=== PATIENT | male | born 1990 | race Caucasian/White ===

== ENCOUNTER 2017-01-14 15:12 | Emergency (ER) | payer SELFPAY ==
[~2017-01-14] VITALS: Ht 175.3 cm; Wt 69.0 kg
[2017-01-14 15:22] VITALS: BP 146/85; PULSE 68; RESP 14; TEMP 98; O2SAT 100
[2017-01-14] MEDS ORDERED: LIDOCAINE HCL 1% 50 ML VIAL XX ONE (16:15)
[2017-01-14] MEDS ORDERED: AZITHROMYCIN PWD FOR SUSP 1 GM PACKET PO ONE (16:15)
[2017-01-14] MEDS ORDERED: IBUPROFEN 600 MG TAB PO ONE (16:15)
[2017-01-14] MEDS ORDERED: cefTRIAXone 250 MG VIAL IM ONE (16:15)
[2017-01-14 16:33] LABS: BLOOD, URINE NEG (NEG); GLUCOSE,URINE NEG (NEG); KETONE, URINE NEG (NEG); NITRITE,URINE NEG (NEG)
[2017-01-14 16:36] LABS: URINE COLOR YELLOW (YELLW/STRAW)
[2017-01-14 16:38] LABS: COMMENT (UR) CULTURE INDICATED; CULTURE IF INDICATED CULTURE INDICATED; SQUAMOUS EPITHELIAL CELL URINE 0-5 /hpf (0-5)
--- NOTE | 2017-01-14 16:40 | PD ---
HPI Chief Complaint: Penile discharge Time Seen by Provider: 16:01 Travel History International Travel<30 days: No Contact w/Intl Traveler<30days: No Traveled to known affect area: No History of Present Illness HPI 26yo M with no PMH presents to the ED with multiple complaints today. His main complaint is yellow penile discharge starting this morning. +Dysuria. Pt also had some throat pain yesterday. Also with midsternal chest pain since 2015. States it is there every day and is sharp and worst with movement. States he had a chest infection in 2015. Denies any fever, sob, n/v, abdominal pain, focal weakness or numbness, hematuria, penile rash or testicular pain. PFSH Past Medical History Medical History: Denies Significant Hx Tetanus Vaccination: > 5 Years Influenza Vaccination: No Past Surgical History Surgical History: No Previous Surgery Social History Alcohol Use: Yes (RARE) Tobacco Use: Yes (1/2 PPD) Substance Use: No Allergies-Medications (Allergen,Severity, Reaction): Coded Allergies: No Known Allergies (Unverified , 01/14/17) Reported Meds & Prescriptions Reported Meds & Active Scripts Active No Active Prescriptions or Reported Medications Review of Systems Except as stated in HPI: all other systems reviewed are Neg Physical Exam Narrative GENERAL: 26yo M not in distress. SKIN: Focused skin assessment warm/dry. HEAD: Atraumatic. Normocephalic. EYES: Pupils equal and round. No scleral icterus. No injection or drainage. ENT: Throat: Clear. No exudate. Uvula midline. NECK: Trachea midline. No JVD. CARDIOVASCULAR: Regular rate and rhythm. No murmur appreciated. CHEST WALL: No rash. +TTP midsternum. RESPIRATORY: No accessory muscle use. Clear to auscultation. Breath sounds equal bilaterally. GASTROINTESTINAL: Abdomen soft, non-tender, nondistended. No rebound tenderness or guarding. : MUSCULOSKELETAL: No obvious deformities. No clubbing. No cyanosis. No edema. NEUROLOGICAL: Awake and alert. No obvious cranial nerve deficits. Motor grossly within normal limits. Normal speech. PSYCHIATRIC: Appropriate mood and affect; insight and judgment normal. Data Data Last Documented VS Vital Signs Date Time Temp Pulse Resp B/P Pulse Ox O2 Delivery O2 Flow Rate FiO2 01/14/17 15:43 01/14/17 15:22 98.0 68 14 100 Room Air Orders Urinalysis - C+S If Indicated (01/14/17 16:07) Gc And Chlamydia Pcr (01/14/17 16:07) Azithromycin Powd Pack (Zithromax Powd P (01/14/17 16:15) Ceftriaxone Inj (Rocephin Inj) (01/14/17 16:15) Lidocaine 1% Inj (50 Ml) (Xylocaine 1% I (01/14/17 16:15) Chest, Single Ap (01/14/17 ) Electrocardiogram (01/14/17 ) Ibuprofen (Motrin) (01/14/17 16:15) Urine Culture (01/14/17 16:20) Complete Blood Count With Diff (01/14/17 16:41) Basic Metabolic Panel (Bmp) (01/14/17 16:41) Troponin I (01/14/17 16:41) Labs Laboratory Tests Test 01/14/17 01/14/17 16:20 17:10 Urine Color YELLOW Urine Turbidity HAZY Urine pH 6.0 Urine Specific Sharon 1.025 Urine Protein NEG mg/dL Urine Glucose (UA) NEG mg/dL Urine Ketones NEG mg/dL Urine Occult Blood NEG Urine Nitrite NEG Urine Bilirubin NEG Urine Leukocyte Esterase SMALL Urine RBC 4-9 /hpf Urine WBC 25-49 /hpf Urine WBC Clumps FEW Urine Squamous Epithelial 0-5 /hpf Cells Microscopic Urinalysis Comment CULTURE INDICATED White Blood Count 10.8 TH/MM3 Red Blood Count 4.99 MIL/MM3 Hemoglobin 14.6 GM/DL Hematocrit 43.8 % Mean Corpuscular Volume 87.8 FL Mean Corpuscular Hemoglobin 29.3 PG Mean Corpuscular Hemoglobin 33.3 % Concent Red Cell Distribution Width 11.3 % Platelet Count 201 TH/MM3 Mean Platelet Volume 9.0 FL Neutrophils (%) (Auto) 73.4 % Lymphocytes (%) (Auto) 15.6 % Monocytes (%) (Auto) 6.5 % Eosinophils (%) (Auto) 0.9 % Basophils (%) (Auto) 3.6 % Neutrophils # (Auto) 7.9 TH/MM3 Lymphocytes # (Auto) 1.7 TH/MM3 Monocytes # (Auto) 0.7 TH/MM3 Eosinophils # (Auto) 0.1 TH/MM3 Basophils # (Auto) 0.4 TH/MM3 CBC Comment DIFF FINAL Differential Comment Sodium Level 142 MEQ/L Potassium Level 4.1 MEQ/L Chloride Level 107 MEQ/L Carbon Dioxide Level 29.8 MEQ/L Anion Gap 5 MEQ/L Blood Urea Nitrogen 14 MG/DL Creatinine 1.10 MG/DL Estimat Glomerular Filtration 80 ML/MIN Rate Random Glucose 104 MG/DL Calcium Level 8.9 MG/DL Troponin I LESS THAN 0.02 NG/ML MDM Medical Decision Making Medical Screen Exam Complete: Yes Emergency Medical Condition: Yes Interpretation(s) EKG: NSR 78bpm. Normal axis. 0.5mm ST elevation II, aVF, V2. ? U wave V2, V3 , V4. Laboratory Tests Test 01/14/17 01/14/17 16:20 17:10 Urine Color YELLOW (YELLW/STRAW) Urine Turbidity HAZY (CLEAR) Urine pH 6.0 (5.0-8.5) Urine Specific Sharon 1.025 (1.002-1.035) Urine Protein NEG mg/dL (NEG-TRACE) Urine Glucose (UA) NEG mg/dL (NEG) Urine Ketones NEG mg/dL (NEG) Urine Occult Blood NEG (NEG) Urine Nitrite NEG (NEG) Urine Bilirubin NEG (NEG) Urine Leukocyte Esterase SMALL (NEG) Urine RBC 4-9 /hpf (0-3) Urine WBC 25-49 /hpf (0-5) Urine WBC Clumps FEW (NONE) Urine Squamous Epithelial 0-5 /hpf (0-5) Cells Microscopic Urinalysis Comment CULTURE INDICATED White Blood Count 10.8 TH/MM3 (4.0-11.0) Red Blood Count 4.99 MIL/MM3 (4.50-5.90) Hemoglobin 14.6 GM/DL (13.0-17.0) Hematocrit 43.8 % (39.0-51.0) Mean Corpuscular Volume 87.8 FL (80.0-100.0) Mean Corpuscular Hemoglobin 29.3 PG (27.0-34.0) Mean Corpuscular Hemoglobin 33.3 % Concent (32.0-36.0) Red Cell Distribution Width 11.3 % (11.6-17.2) Platelet Count 201 TH/MM3 (150-450) Mean Platelet Volume 9.0 FL (7.0-11.0) Neutrophils (%) (Auto) 73.4 % (16.0-70.0) Lymphocytes (%) (Auto) 15.6 % (9.0-44.0) Monocytes (%) (Auto) 6.5 % (0.0-8.0) Eosinophils (%) (Auto) 0.9 % (0.0-4.0) Basophils (%) (Auto) 3.6 % (0.0-2.0) Neutrophils # (Auto) 7.9 TH/MM3 (1.8-7.7) Lymphocytes # (Auto) 1.7 TH/MM3 (1.0-4.8) Monocytes # (Auto) 0.7 TH/MM3 (0-0.9) Eosinophils # (Auto) 0.1 TH/MM3 (0-0.4) Basophils # (Auto) 0.4 TH/MM3 (0-0.2) CBC Comment DIFF FINAL Differential Comment Sodium Level 142 MEQ/L (136-145) Potassium Level 4.1 MEQ/L (3.5-5.1) Chloride Level 107 MEQ/L (98-107) Carbon Dioxide Level 29.8 MEQ/L (21.0-32.0) Anion Gap 5 MEQ/L (5-15) Blood Urea Nitrogen 14 MG/DL (7-18) Creatinine 1.10 MG/DL (0.60-1.30) Estimat Glomerular Filtration 80 ML/MIN (>89) Rate Random Glucose 104 MG/DL (74-106) Calcium Level 8.9 MG/DL (8.5-10.1) Troponin I LESS THAN 0.02 NG/ML (0.02-0.05) Last Impressions Chest X-Ray 01/14/17 0000 Signed Impressions: Service Date/Time: January 16:31 - CONCLUSION: 1. No acute cardiopulmonary disease. Rickey Espinoza MD Differential Diagnosis Gonorrhea vs. chlamydia vs. costochondritis vs. pericarditis vs. pneumonia vs. anxiety Narrative Course 26yo M here with main complaint of penile discharge. Although I dont see anything on physical exam, will empirically treat with ceftriaxone IM and azithromycin PO. UA showed leukocyte with WBC and I think that this is secondary to the penile discharge. Labs reviewed, no leukocytosis. Troponin negative. CXR negative. Chest pain is very atypical and do not think it is cardiac. Denies any current chest pain and wants to go home. Pt is well appearing. Instructed pt to follow up with [facility]. Diagnosis Primary Impression: STD (male) Patient Instructions: General Instructions Departure Forms: Tests/Procedures Additional Instructions: Please have your sexual partner treated as well. Will will call you for the result of gonorrhea and chlamydia but you have been treated for both in the emergency department today. Please follow up with [facility] regarding your chest pain. Return to the ED if symptoms worsen. Med/Other Pt SpecificInfo: Prescription(s) given Scripts Ibuprofen 600 Mg [id number] Mg PO Q8H PRN (PAIN) #20 TAB Ref 0 Prov:Loni Callejas DO 01/14/17 Disposition: 01 DISCHARGE HOME Condition: Stable (ERASED) Loni Callejas DO Jan 14, 2017 16:40
--- NOTE | 2017-01-14 16:47 | RADRPT ---
EXAM DATE/TIME: 01/14/2017 16:31 [facility] COMPARISON: No previous studies available for comparison. INDICATIONS : Chest pain and sore throat. MEDICAL HISTORY : None. SURGICAL HISTORY : None. ENCOUNTER: Initial ACUITY: 1 day PAIN SCORE: 6/10 LOCATION: Bilateral chest FINDINGS: A single view of the chest demonstrates the lungs to be symmetrically aerated without evidence of mas s, infiltrate or effusion. The cardiomediastinal contours are unremarkable. Osseous structures are intact. CONCLUSION: 1. No acute cardiopulmonary disease. Rickey Espinoza MD on January 14, 2017 at 16:46 Board Certified Radiologist. This report was verified electronically.
[2017-01-14 17:19] LABS: AUTOMATED NEUTROPHIL # 7.9 TH/MM3 (1.8-7.7); BASOPHIL # 0.4 TH/MM3 (0-0.2); BASOPHIL % 3.6 % (0.0-2.0); EOSINOPHIL # 0.1 TH/MM3 (0-0.4); EOSINOPHIL % 0.9 % (0.0-4.0); HEMATOCRIT 43.8 % (39.0-51.0); HEMO FLAGS DIFF FINAL; LYMPH % 15.6 % (9.0-44.0); LYMPHOCYTE # 1.7 TH/MM3 (1.0-4.8); MEAN CELL VOLUME 87.8 FL (80.0-100.0); MEAN CORPUSCULAR HEMOGLOBIN 29.3 PG (27.0-34.0); MEAN CORPUSCULAR HGB CONC 33.3 % (32.0-36.0); MONO % 6.5 % (0.0-8.0); NEUT % 73.4 % (16.0-70.0); PLATELET COUNT 201 TH/MM3 (150-450); RED BLOOD COUNT 4.99 MIL/MM3 (4.50-5.90); RED CELL DISTRIBUTION WIDTH 11.3 % (11.6-17.2); WHITE BLOOD COUNT 10.8 TH/MM3 (4.0-11.0)
[2017-01-14 17:27] LABS: CHLORIDE 107 MEQ/L (98-107); POTASSIUM 4.1 MEQ/L (3.5-5.1); SODIUM (NA) 142 MEQ/L (136-145)
[2017-01-14 17:30] LABS: ANION GAP 5 MEQ/L (5-15); BICARBONATE 29.8 MEQ/L (21.0-32.0); BLOOD UREA NITROGEN 14 MG/DL (7-18)
[2017-01-14 17:33] LABS: GLOMERULAR FILTRATION RATE 80 ML/MIN (>89)
[2017-01-14] MEDS ORDERED: IBUP-232 PO (17:59)
[2017-01-14 20:34] LABS: CHLAMYDIA PCR NOT DETECTED (NOT DETECT); NEISSERIA PCR DETECTED (NOT DETECT)
--- NOTE | 2017-01-16 11:07 | EKG ---
Date Performed: 01/14/2017 Time Performed: 16:24:55 PTAGE: 26 years EKG: Sinus rhythm ST ELEVATION CONSISTENT WITH INJURY, PERICARDITIS, OR EARLY REPOLARIZATION ABNORMAL ECG NO PREVIOUS TRACING DOCTOR: Evangelista Ureña Interpretating Date/Time 01/16/2017 10:58:14
== END 2017-01-14 18:19 | disposition home or self-care (01) ==
LOC: PHED 15:12
DX: A64 Unspecified sexually transmitted disease (principal); R07.9 Chest pain, unspecified
CPT/HCPCS: 71010; 80048; 81001; 84484; 85025; 87086; 87491; 87591; 93005; 96372; 99285; J0696